=== PATIENT | female | born 1945 | race Caucasian/White ===

== ENCOUNTER 2018-12-20 07:55 | Outpatient (CLI) | payer OTHER | END 2018-12-20 08:10 | disposition home or self-care (01) | LOC: SONOGRAMA 07:55 | DX: N63.10 Unspecified lump in the right breast, unspecified quadrant (principal) ==

== ENCOUNTER → 2019-01-24 | Outpatient (CLI) | payer OTHER | END | disposition home or self-care (01) | LOC: SONOGRAMA 10:57 | DX: N63.11 Unspecified lump in the right breast, upper outer quadrant (principal); N60.11 Diffuse cystic mastopathy of right breast; N60.12 Diffuse cystic mastopathy of left breast ==

== ENCOUNTER 2019-02-18 06:15 | Day surgery (SDC) | payer OTHER | END 2019-02-18 19:50 | disposition home or self-care (01) | LOC: CIR.AMB 06:15 | DX: C50.411 Malignant neoplasm of upper-outer quadrant of right female breast (principal) ==